=== PATIENT | female | born 1945 | race Caucasian/White ===

== ENCOUNTER 2018-12-23 13:21 | Outpatient (CLI) | payer MEDICARE ==
--- NOTE | 2018-12-23 14:42 | ULT ---
ULTRASOUND WITH DOPPLER DUPLEX VENOUS LOWER EXTREMITIES BILATERAL: HISTORY: Bilateral lower extremity pain in a 73-year-old female. TECHNIQUE: Color flow Doppler, spectral waveform analysis of pulsed Doppler, and weeks-scale imaging with antonio perlita and augmentation, were used to evaluate the bilateral common femoral, femoral, popliteal, manager budget ior tibial, and superficial femoral, veins; and the proximal portions of the profunda femoral and gre ater saphenous, veins. FINDINGS: There is normal compressibility, demonstration of blood flow by color Doppler and pulsed Doppler, and response to augmentation, in all interrogated veins. IMPRESSION: Negative. No deep vein thrombosis in the bilateral lower extremities. jn[] POS: [facility]
== END 2018-12-23 13:22 | disposition home or self-care (01) ==
LOC: BICULT 13:21
PROVIDERS: ATTEND Internal Medicine
DX: M79.605 Pain in left leg (principal); M79.604 Pain in right leg
CPT/HCPCS: 93970

== ENCOUNTER 2019-01-02 15:20 | Outpatient (CLI) | payer MEDICARE ==
--- NOTE | 2019-01-02 16:32 | MRI ---
MRI LEFT KNEE: Date: 01/02/19 PROVIDED CLINICAL HISTORY: Left knee pain. FINDINGS: The anterior cruciate ligament, posterior cruciate ligament, medial collateral ligament, and lateral collateral ligamentous complex demonstrate an intact MR appearance, as does the extensor mechanism. There is a complex, nondisplaced tear involving the body of the medial meniscus. There is an area of cortical concavity involving the central weightbearing portions of the medial femoral condyle mediall y with surrounding marrow edema. The lateral meniscus demonstrates no evidence for tear. There is articular cartilage loss involving the median ridge superiorly with subjacent subcortical cy st-like change. Articular cartilage appears otherwise preserved. There is a mild knee joint effusion with Walker's cyst formation. Regional marrow and muscular signal appear otherwise normal. IMPRESSION: 1. Complete nondisplaced body of medial meniscus. 2. Subchondral insufficiency fracture involving the medial femoral condyle. 3. Mild knee joint effusion with Walker's cyst formation. 4. Patellar chondrosis. POS: OFF
== END 2019-01-02 15:21 | disposition home or self-care (01) ==
LOC: MRI 15:20
PROVIDERS: ATTEND Orthopaedic Surgery
DX: M25.562 Pain in left knee (principal); M84.452A Pathological fracture, left femur, initial encounter for fracture; M22.2X2 Patellofemoral disorders, left knee

== ENCOUNTER 2019-03-02 11:29 | Outpatient (CLI) | payer MEDICARE ==
--- NOTE | 2019-03-02 13:42 | MRI ---
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 Findings: Aortic contour is not aneurysmal. Moderate dextroscoliosis of the lumbar spine. No hydronephrosis. No retroperitoneal adenopathy. The conus medullaris terminates near the superior endplate of L1. Levels are as follows: L1/L2: Circumferential disc osteophyte complex. Moderate bilateral neural foraminal narrowing. Mild f acet arthrosis. L2/L3: Severe degenerative disc space height loss. Circumferential disc osteophyte complex. Moderate right and severe left neural foraminal narrowing with abutment of the left exiting and traversing nerve root. L4/L5: Severe degenerative disc space height loss. Circumferential disc osteophyte complex. Severe fa cet arthropathy. Severe left and moderate to severe right neural foraminal narrowing. L5/S1: Circumferential disc osteophyte complex. Moderate facet arthropathy on the left and severe on the right. Severe right and moderate left neural foraminal narrowing. Impression: Multilevel moderate to severe spondylosis as described with neural foraminal narrowing an d nerve root abutment.
== END 2019-03-02 11:30 | disposition home or self-care (01) ==
LOC: MRI 11:29
PROVIDERS: ATTEND Specialist
DX: M51.16 Intervertebral disc disorders with radiculopathy, lumbar region (principal); M96.1 Postlaminectomy syndrome, not elsewhere classified; M47.26 Other spondylosis with radiculopathy, lumbar region; M47.27 Other spondylosis with radiculopathy, lumbosacral region; M48.061 Spinal stenosis, lumbar region without neurogenic claudication; M48.07 Spinal stenosis, lumbosacral region
CPT/HCPCS: 72158; 82565

== ENCOUNTER 2019-05-31 12:42 | Outpatient (CLI) | payer MEDICARE ==
--- NOTE | 2019-05-31 14:51 | MRI ---
MRI LEFT SHOULDER: 05/31/19 PROVIDED CLINICAL HISTORY: Left shoulder pain. FINDINGS: There is a high grade partial thickness undersurface tear involving the anterior distal infraspinatus tendon about 1 cm from the footplate. The components of the rotator cuff appear otherwise intact. Th e long head biceps tendon appears intact and is normally located. The glenoid labrum and glenohumeral articular cartilage are suboptimally evaluated in the absence of a joint distention. There is signal alteration within the superior labrum that may reflect SLAP tear. Apparent full thickness articular cartilage loss involving the central aspects of the glenoid inferi oliva. Approximately 16 mm intra-articular body within the superior subscapularis recess. There is no significant subacromial subdeltoid bursa fluid present. Acromioclavicular joint osteoart hrosis is demonstrated without significant mass effect upon the subjacent supraspinatus. Rotator cuff muscular volume appears preserved. IMPRESSION: 1. High grade partial thickness undersurface tear involving the anterior infraspinatus tendon ab out 1 cm from the footplate. 2. Possible SLAP tear. 3. 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 POS: [facility]
== END 2019-05-31 12:43 | disposition home or self-care (01) ==
LOC: MRI 12:42
PROVIDERS: ATTEND Orthopaedic Surgery
DX: S43.402A Unspecified sprain of left shoulder joint, initial encounter (principal); M75.112 Incomplete rotator cuff tear or rupture of left shoulder, not specified as traumatic

== ENCOUNTER 2022-10-03 10:48 | Emergency (ER) | payer MEDICARE ==
[2022-10-03 11:35] LABS: #Eosinphils 0.1 thou/uL (0.0-0.7); #Lymphocytes 1.2 thou/uL (1.20-3.40); #Monocytes 0.5 thou/uL (0.11-0.59); #Neutrophils 3.4 thou/uL (1.40-6.50); %Basophils 0.2 % (0.0-1.0); %Eosinophils 2.5 % (0.0-10.0); %Lymphocytes 22.3 % (21.0-51.0); %Monocytes 9.7 % (0.0-10.0); %Neutrophils 65.3 % (42.0-75.0); Mean Corpuscular HGB CONC 33.9 g/dL (32.0-36.0); Mean Corpuscular Hemoglobin 30.6 pg (27.0-31.0); Mean Corpuscular Volume 90.1 fl (78.0-98.0); Mean Platelet Volume 8.4 fL (7.4-10.4); Platelet Count 173 10x3/uL (130-400); RBC Distribution Width 12.8 % (11.5-14.5); Red Blood Cell (RBC) Count 4.92 mill/uL (4.20-5.40); White Blood Cell (WBC) Count 5.3 10x3/uL (4.8-10.8)
[2022-10-03 11:58] LABS: ALT (SGPT) 39 U/L (8-55); AST (SGOT) 27 U/L (5-34); Albumin 4.5 g/dL (3.4-4.8); Alkaline Phosphatase 53 U/L (40-110); Anion Gap 16 mmol/L (10-20); BUN (Urea Nitrogen) 14 mg/dL (9.8-20.1); Bilirubin, Total 0.9 mg/dL (0.2-1.2); Calc. Creatinine Clearance 0 mL/min (70-130); Calcium 10.8 mg/dL (7.8-10.44); Carbon Dioxide 22 mmol/L (23-31); Chloride 104 mmol/L (98-107); Estimated GFR 49; Globulin 2.9 g/dL (2.4-3.5); Glucose 111 mg/dL (83-110); Lipase 20 U/L (8-78); Potassium 3.6 mmol/L (3.5-5.1); Protein, Total 7.4 g/dL (5.8-8.1); Sodium 138 mmol/L (136-145)
[2022-10-03] MEDS ORDERED: HYDROcodone/Acetaminophen 5/325 mg Tablet ONE (12:22)
[2022-10-03] MEDS ORDERED: Ibuprofen 200 MG TAB ONE (12:22)
== END 2022-10-03 12:37 | disposition home or self-care (01) ==
LOC: ERS 10:48
DX: S05.12XA Contusion of eyeball and orbital tissues, left eye, initial encounter (principal); I10 Essential (primary) hypertension
CPT/HCPCS: 36415; 70450; 71045; 80053; 83690; 84484; 85025; 93005

== ENCOUNTER 2022-10-19 10:59 | Emergency (ER) | payer MEDICARE | END 2022-10-19 14:03 | disposition home or self-care (01) | LOC: ERS 10:59 | DX: S09.90XA Unspecified injury of head, initial encounter (principal); I10 Essential (primary) hypertension; W22.8XXA Striking against or struck by other objects, initial encounter | CPT/HCPCS: 70450; 72125 ==

== ENCOUNTER 2023-07-01 11:12 | Outpatient (CLI) | payer MEDICARE | END 2023-07-01 11:13 | disposition home or self-care (01) | LOC: MRI 11:12 | PROVIDERS: ATTEND Family Medicine | DX: M50.123 Cervical disc disorder at C6-C7 level with radiculopathy (principal); M43.12 Spondylolisthesis, cervical region; M48.02 Spinal stenosis, cervical region | CPT/HCPCS: 72141 ==

== ENCOUNTER 2023-08-28 23:05 | Emergency (ER) | payer OTHER, MEDICARE ==
[2023-08-28] MEDS ORDERED: Lidocaine 1% PF 5 ML VIAL ONE (23:28)
== END 2023-08-29 00:49 | disposition home or self-care (01) ==
LOC: ERS 23:05
DX: S16.1XXA Strain of muscle, fascia and tendon at neck level, initial encounter (principal); S01.81XA Laceration without foreign body of other part of head, initial encounter; I10 Essential (primary) hypertension; W01.0XXA Fall on same level from slipping, tripping and stumbling without subsequent striking against object, initial encounter
CPT/HCPCS: 12013; 70450; 71045; 72125

== ENCOUNTER 2023-11-12 07:55 | Inpatient (IN) | payer MEDICARE ==
[2023-11-12 08:30] LABS: #Eosinphils 0.2 thou/uL (0.0-0.7); #Monocytes 0.4 thou/uL (0.11-0.59); %Basophils 0.4 % (0.0-1.0); %Eosinophils 4.5 % (0.0-10.0); %Lymphocytes 28.1 % (21.0-51.0); %Monocytes 7.8 % (0.0-10.0); %Neutrophils 58.8 % (42.0-75.0); Hemoglobin 13.3 g/dL (12.0-16.0); Mean Corpuscular HGB CONC 33.3 g/dL (32.0-36.0); Mean Corpuscular Hemoglobin 29.1 pg (27.0-31.0); Mean Corpuscular Volume 87.5 fl (78.0-98.0); Platelet Count 202 10x3/uL (130-400); RBC Distribution Width 13.9 % (11.5-14.5); Red Blood Cell (RBC) Count 4.57 mill/uL (4.20-5.40); White Blood Cell (WBC) Count 5.1 10x3/uL (4.8-10.8)
[2023-11-12 08:54] LABS: ALT (SGPT) 19 U/L (8-55); AST (SGOT) 15 U/L (5-34); Albumin 4.1 g/dL (3.4-4.8); Alkaline Phosphatase 46 U/L (40-110); Anion Gap 11 mmol/L (10-20); BUN (Urea Nitrogen) 17 mg/dL (9.8-20.1); Bilirubin, Total 0.7 mg/dL (0.2-1.2); Calc. Creatinine Clearance 0 mL/min (70-130); Calcium 9.9 mg/dL (7.8-10.44); Carbon Dioxide 25 mmol/L (23-31); Chloride 110 mmol/L (98-107); Estimated GFR 62; Globulin 2.5 g/dL (2.4-3.5); Glucose 109 mg/dL (83-110); Potassium 3.5 mmol/L (3.5-5.1); Protein, Total 6.6 g/dL (5.8-8.1); Sodium 142 mmol/L (136-145)
[2023-11-12 08:59] LABS: Troponin I Less than 0.010 ng/mL (< 0.028)
[2023-11-12 09:00] LABS: PTT 30.4 sec (22.9-36.1); Prothrombin Time 13.6 sec (12.0-14.7)
[2023-11-12] MEDS ORDERED: Aspirin Chewable 81 MG TAB ONE (09:38)
[2023-11-12] MEDS ORDERED: Ondansetron PF 4 MG/2 ML Vial IVP PRN (11:12)
[2023-11-12] MEDS ORDERED: Ondansetron ODT 4 MG TAB PO PRN (11:12)
[2023-11-12] MEDS ORDERED: Acetaminophen 650 MG Suppository PR PRN (11:12)
[2023-11-12] MEDS ORDERED: Acetaminophen 325 MG TAB PO PRN (11:12)
[2023-11-12] MEDS ORDERED: Iopamidol-370 76% 500 ML MDV (1 ML CHARGE) ONE (11:51)
[2023-11-12] MEDS ORDERED: hydrALAZINE 20 MG/ML VIAL SLOW IVP PRN (12:03)
[2023-11-12] MEDS ORDERED: Lorazepam 2 MG/ML VIAL SLOW IVP SCH (13:30)
[2023-11-12 13:42] VITALS: BMI 25.0
[2023-11-12] MEDS ORDERED: LORazepam 2 MG/ML SYR.(CARPUJECT) ONE (15:39)
[2023-11-12] MEDS ORDERED: LORazepam 2 MG/ML SYR.(CARPUJECT) IVP SCH (15:45)
[2023-11-12] MEDS: Atorvastatin Calcium 40 MG TAB PO SCH (20:27)
[2023-11-12] MEDS: Famotidine 20 MG TAB PO SCH (20:28)
[2023-11-12] MEDS: ALPRAZolam 0.5 MG TAB PO SCH (21:35)
[2023-11-13 03:22] LABS: Bacteria/HPF None Seen HPF (None Seen); Bilirubin Negative (Negative); Blood, Urine Negative (Negative); CAUTI Indications for Culture Alt mental st,lethar; Clarity Clear (Clear); Glucose, Urine (Dipstick) Normal (Negative); Ketone, Urine Negative (Negative); Leukocyte 25 Leu/uL (Negative); Nitrite Negative (Negative); Protein, Urine (Dipstick) Negative (Neg-Trace); RBC/HPF 0-3 HPF (0-3); Squamous Epithelial 0-3 HPF (0-3); Urobilinogen Normal mg/dL (Less than 2); pH, Urine 6.5 (5.0-9.0)
[2023-11-13 03:25] LABS: Urine Culture Reflex No No
[2023-11-13 05:31] LABS: #Eosinphils 0.2 thou/uL (0.0-0.7); #Monocytes 0.4 thou/uL (0.11-0.59); #Neutrophils 2.8 thou/uL (1.40-6.50); %Basophils 0.4 % (0.0-1.0); %Eosinophils 3.7 % (0.0-10.0); %Lymphocytes 33.3 % (21.0-51.0); %Monocytes 7.9 % (0.0-10.0); %Neutrophils 54.5 % (42.0-75.0); Mean Corpuscular HGB CONC 33.3 g/dL (32.0-36.0); Mean Corpuscular Volume 86.9 fl (78.0-98.0); Mean Platelet Volume 10.2 fL (7.4-10.4); Platelet Count 185 10x3/uL (130-400); RBC Distribution Width 13.9 % (11.5-14.5); Red Blood Cell (RBC) Count 4.49 mill/uL (4.20-5.40); White Blood Cell (WBC) Count 5.2 10x3/uL (4.8-10.8)
[2023-11-13 05:45] LABS: Hemoglobin A1c 5.6 % (4.0-6.0)
[2023-11-13 05:57] LABS: Anion Gap 6 mmol/L (10-20); BUN (Urea Nitrogen) 11 mg/dL (9.8-20.1); Calc. Creatinine Clearance 54 mL/min (70-130); Calcium 9.5 mg/dL (7.8-10.44); Carbon Dioxide 26 mmol/L (23-31); Cardiac Risk 2.4 (Less than 4.5); Chloride 112 mmol/L (98-107); Cholesterol 128 mg/dl (< 200 Desired); Estimated GFR 70; Glucose 104 mg/dL (83-110); HDL Cholesterol 53 mg/dL (>60 Neg Risk); LDL Cholesterol, Calculated 61 mg/dL; Potassium 3.4 mmol/L (3.5-5.1); Sodium 141 mmol/L (136-145); Triglycerides 69 mg/dL (Less than 150)
[2023-11-13] MEDS: Famotidine 20 MG TAB PO SCH ×2 (09:19→20:28)
[2023-11-13] MEDS: Aspirin 81 mg Enteric Coated Tablet PO SCH (09:19)
[2023-11-13] MEDS: Clopidogrel Bisulfate 75 MG TAB PO SCH (09:19)
[2023-11-13] MEDS ORDERED: Potassium Chloride 20 MEQ TAB PO SCH (13:45)
[2023-11-13] MEDS: Atorvastatin Calcium 40 MG TAB PO SCH (20:28)
[2023-11-13] MEDS: ALPRAZolam 0.5 MG TAB PO SCH (20:28)
[2023-11-14 08:07] LABS: #Eosinphils 0.2 thou/uL (0.0-0.7); #Monocytes 0.4 thou/uL (0.11-0.59); #Neutrophils 2.9 thou/uL (1.40-6.50); %Basophils 0.4 % (0.0-1.0); %Eosinophils 3.7 % (0.0-10.0); %Lymphocytes 33.5 % (21.0-51.0); %Monocytes 7.8 % (0.0-10.0); %Neutrophils 54.2 % (42.0-75.0); Hematocrit 38.7 % (36.0-47.0); Hemoglobin 13.2 g/dL (12.0-16.0); Mean Corpuscular HGB CONC 34.1 g/dL (32.0-36.0); Mean Corpuscular Hemoglobin 29.5 pg (27.0-31.0); Mean Corpuscular Volume 86.4 fl (78.0-98.0); Platelet Count 193 10x3/uL (130-400); RBC Distribution Width 13.7 % (11.5-14.5); Red Blood Cell (RBC) Count 4.48 mill/uL (4.20-5.40); White Blood Cell (WBC) Count 5.4 10x3/uL (4.8-10.8)
[2023-11-14 08:26] LABS: Anion Gap 11 mmol/L (10-20); BUN (Urea Nitrogen) 13 mg/dL (9.8-20.1); Calc. Creatinine Clearance 53 mL/min (70-130); Calcium 9.8 mg/dL (7.8-10.44); Carbon Dioxide 23 mmol/L (23-31); Chloride 111 mmol/L (98-107); Estimated GFR 69; Glucose 111 mg/dL (83-110); Potassium 3.9 mmol/L (3.5-5.1); Sodium 141 mmol/L (136-145)
[2023-11-14] MEDS: Clopidogrel Bisulfate 75 MG TAB PO SCH (10:06)
[2023-11-14] MEDS: Famotidine 20 MG TAB PO SCH (10:06)
[2023-11-14] MEDS: Aspirin 81 mg Enteric Coated Tablet PO SCH (10:06)
[2023-11-14 15:59] VITALS: TEMP 97.7
[2023-11-14 16:31] VITALS: BP 172/83
== END 2023-11-14 17:00 | disposition home or self-care (01) | DRG 66 ==
LOC: ERS 07:55 → ERHOLD 12:57 → OBSVTOIN 17:21 → 2SE 18:01
PROVIDERS: ADMIT Internal Medicine; ATTEND Internal Medicine
DX: I63.81 Other cerebral infarction due to occlusion or stenosis of small artery (principal); I10 Essential (primary) hypertension; E78.5 Hyperlipidemia, unspecified; Z79.899 Other long term (current) drug therapy; Z98.890 Other specified postprocedural states; Z82.49 Family history of ischemic heart disease and other diseases of the circulatory system; E87.6 Hypokalemia; I16.0 Hypertensive urgency; Z90.710 Acquired absence of both cervix and uterus; R20.2 Paresthesia of skin
CPT/HCPCS: 36415; 36416; 70450; 70496; 70498; 70551; 71045; 80048; 80053; 80061; 81001; 83036; 84443; 84484; 85025; 85610; 85730; 93005; 93306; 93970; 94760; 96374; G0378; J2060; Q9967

== ENCOUNTER 2023-11-27 16:47 | Inpatient (IN) | payer OTHER, MEDICARE ==
[2023-11-27] MEDS ORDERED: Sodium Chloride 0.9% 100 ML ONE (18:00)
[2023-11-27] MEDS ORDERED: niCARdipine 25 MG/10 ML SDV ONE ×2 (18:00→18:31)
[2023-11-27] MEDS ORDERED: Acetaminophen 500 MG TAB ONE (18:31)
[2023-11-27] MEDS ORDERED: Ondansetron PF 4 MG/2 ML Vial ONE (18:31)
[2023-11-27] MEDS ORDERED: Morphine 2 MG/ML VIAL ONE (18:31)
[2023-11-27 18:41] LABS: #Eosinphils 0.2 thou/uL (0.0-0.7); #Monocytes 0.6 thou/uL (0.11-0.59); #Neutrophils 5.6 thou/uL (1.40-6.50); %Basophils 0.4 % (0.0-1.0); %Lymphocytes 22.5 % (21.0-51.0); %Monocytes 7.5 % (0.0-10.0); %Neutrophils 67.2 % (42.0-75.0); Hematocrit 39.2 % (36.0-47.0); Hemoglobin 13.6 g/dL (12.0-16.0); Mean Corpuscular HGB CONC 34.7 g/dL (32.0-36.0); Mean Corpuscular Hemoglobin 29.5 pg (27.0-31.0); Mean Platelet Volume 10.6 fL (7.4-10.4); Platelet Count 190 10x3/uL (130-400); RBC Distribution Width 14.1 % (11.5-14.5); Red Blood Cell (RBC) Count 4.61 mill/uL (4.20-5.40); White Blood Cell (WBC) Count 8.4 10x3/uL (4.8-10.8)
[2023-11-27 18:58] LABS: INR-International Normal Ratio 1.1; Prothrombin Time 13.9 sec (12.0-14.7)
[2023-11-27 19:06] LABS: ALT (SGPT) 23 U/L (8-55); AST (SGOT) 18 U/L (5-34); Albumin 4.4 g/dL (3.4-4.8); Alkaline Phosphatase 49 U/L (40-110); Anion Gap 13 mmol/L (10-20); BUN (Urea Nitrogen) 18 mg/dL (9.8-20.1); Bilirubin, Total 0.8 mg/dL (0.2-1.2); Calc. Creatinine Clearance 0 mL/min (70-130); Calcium 10.1 mg/dL (7.8-10.44); Carbon Dioxide 24 mmol/L (23-31); Chloride 108 mmol/L (98-107); Estimated GFR 51; Globulin 2.5 g/dL (2.4-3.5); Glucose 95 mg/dL (83-110); Potassium 3.6 mmol/L (3.5-5.1); Protein, Total 6.9 g/dL (5.8-8.1); Sodium 141 mmol/L (136-145)
[2023-11-27] MEDS ORDERED: Ondansetron PF 4 MG/2 ML Vial IVP PRN (19:38)
[2023-11-27] MEDS ORDERED: Ondansetron ODT 4 MG TAB PO PRN (19:38)
[2023-11-27] MEDS ORDERED: traMADol HCl 50 MG TAB PO PRN (19:38)
[2023-11-27] MEDS ORDERED: niCARdipine 25 MG in Sodium Chloride 0.9% 250 ML 250 ML IVPB SCH (19:45)
[2023-11-27] MEDS: Sodium Chloride 0.9% 1,000 ML IV SCH (22:04)
[2023-11-27] MEDS: Acetaminophen 500 MG TAB PO SCH (22:04)
[2023-11-27] MEDS: ALPRAZolam 0.5 MG TAB PO SCH (22:05)
[2023-11-27 22:12] VITALS: BMI 29.4
[2023-11-28 07:23] LABS: Anion Gap 10 mmol/L (10-20); BUN (Urea Nitrogen) 14 mg/dL (9.8-20.1); Calc. Creatinine Clearance 58 mL/min (70-130); Calcium 9.4 mg/dL (7.8-10.44); Carbon Dioxide 24 mmol/L (23-31); Chloride 110 mmol/L (98-107); Estimated GFR 63; Glucose 87 mg/dL (83-110); Potassium 3.3 mmol/L (3.5-5.1); Sodium 141 mmol/L (136-145)
[2023-11-28 07:30] LABS: #Eosinphils 0.2 thou/uL (0.0-0.7); #Monocytes 0.6 thou/uL (0.11-0.59); #Neutrophils 2.3 thou/uL (1.40-6.50); %Basophils 0.4 % (0.0-1.0); %Lymphocytes 37.4 % (21.0-51.0); %Monocytes 11.4 % (0.0-10.0); %Neutrophils 46.6 % (42.0-75.0); Hematocrit 37.9 % (36.0-47.0); Hemoglobin 12.6 g/dL (12.0-16.0); Mean Corpuscular HGB CONC 33.2 g/dL (32.0-36.0); Mean Corpuscular Volume 87.1 fl (78.0-98.0); Mean Platelet Volume 10.5 fL (7.4-10.4); Platelet Count 176 10x3/uL (130-400); RBC Distribution Width 14.2 % (11.5-14.5); Red Blood Cell (RBC) Count 4.35 mill/uL (4.20-5.40)
[2023-11-28] MEDS: Losartan 25 MG TAB PO SCH (07:54)
[2023-11-28] MEDS: Hydrochlorothiazide 25 MG TAB PO SCH (07:55)
[2023-11-28] MEDS: FLU VACC QS2023(65UP)/MF59C/PF 60 MCG/0.5 ML SYRINGE IM ONE (07:55)
[2023-11-28] MEDS: Amlodipine 5 MG TAB PO SCH (09:37)
[2023-11-28] MEDS: Metoprolol Tartrate 50 MG TAB PO SCH (15:08)
[2023-11-28] MEDS: hydrALAZINE 20 MG/ML VIAL SLOW IVP PRN (15:17)
[2023-11-28 15:18] VITALS: BP 185/84
[2023-11-28 16:01] VITALS: TEMP 98.4
== END 2023-11-28 16:43 | disposition home or self-care (01) | DRG 86 ==
LOC: ERS 16:47 → CCU 19:53
PROVIDERS: ADMIT Specialist; ATTEND Specialist
DX: S06.5X0A Traumatic subdural hemorrhage without loss of consciousness, initial encounter (principal); N17.9 Acute kidney failure, unspecified; G89.29 Other chronic pain; I10 Essential (primary) hypertension; M19.90 Unspecified osteoarthritis, unspecified site; F41.9 Anxiety disorder, unspecified; W19.XXXA Unspecified fall, initial encounter; Y92.89 Other specified places as the place of occurrence of the external cause; Z90.49 Acquired absence of other specified parts of digestive tract; Z90.710 Acquired absence of both cervix and uterus
CPT/HCPCS: 36415; 70450; 71045; 80048; 80053; 85025; 85610; 85730; 96365; 96366; 96375; G0390; J0360; J2272; J2405; J3490; J7050

== ENCOUNTER 2023-12-10 13:43 | Outpatient (CLI) | payer MEDICARE | END 2023-12-10 13:44 | disposition home or self-care (01) | LOC: CT 13:43 | PROVIDERS: ATTEND Internal Medicine | DX: S06.5X0D Traumatic subdural hemorrhage without loss of consciousness, subsequent encounter (principal) | CPT/HCPCS: 70450 ==